=== PATIENT | female | born 1965 | race Caucasian/White ===

== ENCOUNTER 2017-02-06 05:49 | Inpatient (IN) | payer BC, OTHER ==
--- NOTE | 2017-02-06 06:58 | ED ---
Misbah Conn Nilda, scribed for Indra Pierce MD on 02/06/17 at 0642 . Upper Extremity Pain - HPI Summary HPI Summary: This patient is a 51 year old F presenting to [facility] accompanied by with a chief complaint of exacerbated constant left hand pain (burning) s/p lifting heavy objects at work at 0200 today. The patient rates the pain 7/10 in severity. Symptoms aggravated by movement and palpation. Symptoms alleviated by nothing. Patient reports left hand swelling. - History of Current Complaint Chief Complaint: EDExtremityUpper Stated Complaint: LEFT HAND INJURY FROM WORK Time Seen by Provider: 02/06/17 06:34 Hx Obtained From: Patient Mechanism Of Injury: Other - lifting heavy objects at work today. Onset/Duration: Started Hours Ago, Still Present Timing: Constant Severity Currently: Moderate - 7/10 Character: Burning Aggravating Factor(s): Movement, Other - palpation Alleviating Factor(s): Nothing Associated Signs & Symptoms: Positive: Swelling - left hand - Allergies/Home Medications Allergies/Adverse Reactions: Allergies Allergy/AdvReac Type Severity Reaction Status Date / Time No Known Allergies Allergy Verified 02/06/17 05:55 PMH/Surg Hx/FS Hx/Imm Hx Cardiovascular History: Reports: Hx Hypertension Sensory History: Denies: Hx Legally Blind Psychiatric History: Reports: Hx Depression - Surgical History Surgery Procedure, Year, and Place: ovary removed Infectious Disease History: No Infectious Disease History: Reports: Hx Shingles Denies: History Other Infectious Disease, Traveled Outside the [place] in Last 30 Days - Family History Known Family History: Positive: Hypertension Negative: Diabetes - Social History Alcohol Use: Rare Substance Use Type: Reports: None Smoking Status (MU): Heavy Every Day Tobacco Smoker Type: Cigarettes Amount Used/How Often: 1/2 ppd Review of Systems Negative: Shortness Of Breath Positive: Other - left hand pain and swelling All Other Systems Reviewed And Are Negative: Yes Physical Exam Triage Information Reviewed: Yes Vital Signs On Initial Exam: Initial Vitals Temp Pulse Resp BP Pulse Ox 97.3 F 95 16 154/114 98 02/06/17 05:51 02/06/17 05:51 02/06/17 05:51 02/06/17 05:51 02/06/17 05:51 Vital Signs Reviewed: Yes Appearance: Positive: Well-Appearing, No Pain Distress Skin: Positive: Warm, Skin Color Reflects Adequate Perfusion, Dry Head/Face: Positive: Normal Head/Face Inspection Eyes: Positive: EOMI, NAS ENT: Positive: Normal ENT inspection Neck: Positive: Supple, Nontender Respiratory/Lung Sounds: Positive: Clear to Auscultation, Breath Sounds Present Cardiovascular: Positive: RRR Abdomen Description: Positive: Nontender, Soft Bowel Sounds: Positive: Present Musculoskeletal: Positive: Strength/ROM Intact, Other - FROM in left fingers and left wrist; discomfort in radial aspect of wrist with ROM; swelling in dorsal aspect over proximal first and second metacarpals Neurological: Positive: Normal, Sensory/Motor Intact, Alert, Oriented to Person Place, Time Psychiatric: Positive: Affect/Mood Appropriate - Mamie Coma Scale Coma Scale Total: 15 Diagnostics - Vital Signs Vital Signs Temp Pulse Resp BP Pulse Ox 02/06/17 06:25 98 F 88 18 158/100 97 02/06/17 05:51 97.3 F 95 16 154/114 98 - Laboratory Lab Statement: Any lab studies that have been ordered have been reviewed, and results considered in the medical decision making process. - Radiology Wrist XRAY Radiology Interpretation Completed By: ED Physician - No fracture noted. Re-Evaluation - Re-Evaluation First Eval Re-Evaluation Time: 06:45 Comment: Patient reporting SI (onset: yesterday, resolved). PMHx depression. Patient denies current SI. ED physician offered [facility]HE but patient notes that she feels safe going home. Course/Dx - Course Course Of Treatment: BP noted and advised to follow up with PCP. Medications reviewed. PATIENT DENIED SI/FEELS SAFE GOING HOME/ AGREES. I DID NOT SEE A FXR ON X-RAY. RADIOLOGIST READING IS PENDING. THUMB SPICA SPLINT PLACE BECAUSE PAIN IS DISTAL RADIUS/PROXIMAL 1ST/2ND METACARPALS. F/U PMD. IF RADIOLOGY SEES FXR; F/U ORTHO. - Diagnoses Provider Diagnoses: Left wrist sprain Discharge - Discharge Plan Condition: Stable Disposition: HOME Patient Education Materials: Splint Care (ED), Wrist Sprain (ED), Ibuprofen ( By mouth) Forms: *Work Release Referrals: Yousuf PABLO,David Burgess [Primary Care Provider] - Additional Instructions: FOLLOW UP WITH YOUR DOCTOR. THE RADIOLOGIST WILL READ THE X-RAY THIS MORNING; IF THERE IS A FRACTURE, YOU WILL NEED TO FOLLOW UP WITH ORTHOPEDICS. RETURN TO THE EMERGENCY DEPARTMENT FOR ANY WORSENING OF YOUR CONDITION OR QUESTIONS OR CONCERNS. The documentation as recorded by the Misbah nevarez Nilda accurately reflects the service I personally performed and the decisions made by me, Indra Pierce MD.
[2017-02-06 07:49] LABS: Hematocrit 47 % (35-47); Hemoglobin 15.9 g/dl (12.0-16.0); Mean Corpuscular HGB Conc 34 g/dl (31-36); Mean Corpuscular Hemoglobin 29 pg (27-31); Mean Corpuscular Volume 85 fL (80-97); Mean Platelet Volume 9 um3 (7.4-10.4); Red Blood Count 5.56 10^6/ul (4.0-5.4); Red Cell Distribution Width 13 % (10.5-15); White Blood Count 9.9 10^3/ul (3.5-10.8)
[2017-02-06 07:50] LABS: Add Diff/Slide Review? Manual Diff Added; Comments Flag Yes
[2017-02-06 07:55] LABS: Urine Bacteria Absent (Absent); Urine Bilirubin Negative (Negative); Urine Glucose Negative (Negative); Urine Nitrite Negative (Negative)
[2017-02-06 08:00] LABS: Benzodiazepine Urine Screen None Detected (None Detect)
[2017-02-06 08:05] LABS: ALT 9 U/L (7-52); AST 14 U/L (13-39); Albumin 4.6 g/dL (3.2-5.2); Alkaline Phosphatase 73 U/L (34-104); Anion Gap 7 mmol/L (2-11); BUN/Creatinine Ratio 19.6 (8-20); Blood Urea Nitrogen 11 mg/dL (6-24); CO2 Carbon Dioxide 25 mmol/L (22-32); Calcium 9.8 mg/dL (8.6-10.3); Chloride 101 mmol/L (101-111); EGFR African American 146.2 (>60); EGFR Non-African American 113.7 (>60); Globulin 3.2 g/dL (2-4); Glucose 91 mg/dL (70-100); Sodium 133 mmol/L (133-145); Total Protein 7.8 g/dL (6.4-8.9)
--- NOTE | 2017-02-06 08:21 | RAD ---
INDICATION: 2 weeks of left wrist pain COMPARISON: Hand radiograph dated March 26, 2008 TECHNIQUE: 3 views left wrist. REPORT: The visualized bones are properly aligned and well corticated. The joint spaces are normal.There is no fracture, dislocation or other focal osseous abnormality. IMPRESSION: Normal radiograph of the left wrist. If the patient's symptoms persist, follow-up imaging is recommended.
[2017-02-06 08:36] LABS: Acetaminophen < 15 mcg/mL; Add Path Review? YES; Alcohol < 10 mg/dL (<10); Eosinophils % 3 % (0-6); Neutrophil % 63 % (38-83); RBC Morphology Normal (Normal); Reactive Lymph % 14 % (0-6); Salicylate < 2.50 mg/dL (<30)
[2017-02-06 08:49] LABS: TSH (Thyroid Stimulating Horm) 0.66 mcIU/mL (0.34-5.60)
[2017-02-06] MEDS ORDERED: Acetaminophen TAB* 325 MG PO ONE (11:38)
[2017-02-06] MEDS ORDERED: Nicotine PATCH 14 MG/24 HR* PATCH TRANSDERM ONE (14:20)
[2017-02-07] MEDS ORDERED: Acetaminophen TAB* 325 MG PO PRN (05:00)
[2017-02-07] MEDS ORDERED: Acetaminophen TAB* 325 MG ONE (05:08)
--- NOTE | 2017-02-07 11:32 | HP ---
H&P (Free Text) History and Physical: HPI: ---- Patient is a 51yo female with PPHx significant for Depressive d/o who presents, BIB her , reporting worsening anxiety and depression associated with recent SI w/plan to OD on her and her husbands Rx pills on the [facility]. Patient has been employed at [employer] for >20years. 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 Patient reports she has dealt with derogatory comments from students, staff, and her supervisors for much of her 20yrs at [employer]. She stated recently she has, "reached a breaking point...it's all the stress, at work, financial, just everything". Patient stated recently, "everything is so much worse", and she feels ,"invisible at work". Patient points also to stressor of her 's recent MVA and that he has not been able to work for some time now. [facility] Patient has had visits from her daughter and since admission. Patient reports her 5 grandchildren are her protective factors from harming herself. Patient reports this is her 1st psychiatric admission. Patient denies new medical issues. Patient reports neither alcohol or illicit substances played a role in her decompensation. Patient denies hx of physical, emotional, or sexual abuse in childhood. She reports no signs of psychosis nor were any elicited on interview. Past Psych Hx: Inpt - Patient reports this is her 1st psychiatric admission. Outpt - patient reports no hx of encounters at outpt clinics. She reports she has had antidepressants this year w/o benefit, Rx'd by her PCP(Dr. To). Psychotropic med hx - Zoloft Suicide attempt Hx / SIB Hx: Patient denies hx of suicide attempt and denies hx of SIB. Trauma Hx: Patient denies hx of physical, emotional, or sexual abuse in childhood. Substance Hx: Patient denies hx of abuse of alcohol. Patient denies hx of use of illicit substances. Medical Hx: HTN Psoriasis Allergies: --------- NKDA Family Hx: Patient reports no hx of MH issues in family members. Patient reports her dad was an alcoholic. Patient reports no hx in family members of completed or attempted suicide. Social Hx: --------- -Lives in [place] with her 2nd , they 07/2016. -Patient's 1st marriage of 21yrs ended in divorce in 2003. -Patient has 3 children and 5 grandchildren. -Patient has worked for [employer] in [place] for 20yrs. -Patient denies pending legal issues. -Patient reports no hx of assault or DV. -Patient reports firearms in her home, but reports they are locked in safes. She reports she does not have the keys. Will d/w . -Patient reports no stockpiles of old Rx pills. Home Medications: Home Medications Medication Instructions Recorded Confirmed Type Acetaminophen TAB* [Tylenol TAB*] 650 mg PO Q4H PRN 06/03/15 06/03/15 History Lisinopril [Lisinopril 20 MG-] 20 mg PO DAILY 06/03/15 02/07/17 History Methotrexate TAB* 8 mg PO WEEKLY 06/03/15 02/07/17 History Tizanidine HCl [Zanaflex] 2 mg PO TID PRN #30 cap 06/03/15 02/07/17 Rx Sertraline HCl [Zoloft] 50 mg PO DAILY 02/06/17 02/06/17 History Hydrochlorothiazide TAB* 12.5 mg PO DAILY 02/07/17 02/07/17 History [Hydrodiuril TAB*] VITALS: --------- Vital Signs (72 hours) 02/06/17 02/06/17 02/06/17 05:51 06:25 10:53 Temperature 97.3 F 98 F 97.4 F Pulse Rate 95 88 84 Respiratory 16 18 17 Rate Blood Pressure 154/114 158/100 146/100 (mmHg) O2 Sat by Pulse 98 97 98 Oximetry 02/06/17 02/06/17 02/06/17 12:29 20:01 22:49 Temperature 98.6 F 99 F Pulse Rate 74 75 Respiratory 16 18 18 Rate Blood Pressure 143/97 144/93 (mmHg) O2 Sat by Pulse 98 98 Oximetry 02/07/17 02/07/17 02/08/17 07:35 12:09 07:15 Temperature 98.7 F 99.4 F Pulse Rate 75 66 Respiratory 16 16 16 Rate Blood Pressure 150/96 157/102 (mmHg) O2 Sat by Pulse 97 96 Oximetry LABS: -------- Laboratory Tests 02/06/17 02/06/17 02/06/17 07:35 07:35 07:35 WBC 9.9 RBC 5.56 H Hgb 15.9 Hct 47 MCV 85 MCH 29 MCHC 34 RDW 13 Plt Count 267 MPV 9 Absolute Neuts (auto) 6.2 Absolute Lymphs (auto) 3.1 Absolute Monos (auto) 0.3 Absolute Eos (auto) 0.3 Absolute Basos (auto) 0 Absolute Nucleated RBC 0 Neutrophils % 63 Lymphocytes % 17 L Reactive Lymphs % 14 H Monocytes % 3 Eosinophils % 3 Normal RBC Morphology Normal Hem Pathologist Commnt Sodium 133 Potassium 4.0 Chloride 101 Carbon Dioxide 25 Anion Gap 7 BUN 11 Creatinine 0.56 Est GFR ( Amer) 146.2 Est GFR (Non-Af Amer) 113.7 BUN/Creatinine Ratio 19.6 Glucose 91 Calcium 9.8 Total Bilirubin 0.60 AST 14 ALT 9 Alkaline Phosphatase 73 Total Protein 7.8 Albumin 4.6 Globulin 3.2 Albumin/Globulin Ratio 1.4 TSH 0.66 Urine Color Urine Appearance Urine pH Ur Specific [place] Urine Protein Urine Ketones Urine Blood Urine Nitrate Urine Bilirubin Urine Urobilinogen Ur Leukocyte Esterase Urine WBC (Auto) Urine RBC (Auto) Ur Squamous Epith Cells Urine Bacteria Urine Glucose Salicylates < 2.50 Urine Opiates Screen None detected Acetaminophen < 15 Ur Barbiturates Screen None detected Ur Phencyclidine Scrn None detected Ur Amphetamines Screen None detected U Benzodiazepines Scrn None detected Urine Cocaine Screen None detected U Cannabinoids Screen None detected Serum Alcohol < 10 02/06/17 07:35 WBC RBC Hgb Hct MCV MCH MCHC RDW Plt Count MPV Absolute Neuts (auto) Absolute Lymphs (auto) Absolute Monos (auto) Absolute Eos (auto) Absolute Basos (auto) Absolute Nucleated RBC Neutrophils % Lymphocytes % Reactive Lymphs % Monocytes % Eosinophils % Normal RBC Morphology Hem Pathologist Commnt Sodium Potassium Chloride Carbon Dioxide Anion Gap BUN Creatinine Est GFR ( Amer) Est GFR (Non-Af Amer) BUN/Creatinine Ratio Glucose Calcium Total Bilirubin AST ALT Alkaline Phosphatase Total Protein Albumin Globulin Albumin/Globulin Ratio TSH Urine Color Yellow Urine Appearance Clear Urine pH 5.0 Ur Specific [place] 1.008 L Urine Protein Negative Urine Ketones Negative Urine Blood 1+ H Urine Nitrate Negative Urine Bilirubin Negative Urine Urobilinogen Negative Ur Leukocyte Esterase Negative Urine WBC (Auto) Absent Urine RBC (Auto) Trace(0-2/hpf) Ur Squamous Epith Cells Present H Urine Bacteria Absent Urine Glucose Negative Salicylates Urine Opiates Screen Acetaminophen Ur Barbiturates Screen Ur Phencyclidine Scrn Ur Amphetamines Screen U Benzodiazepines Scrn Urine Cocaine Screen U Cannabinoids Screen Serum Alcohol PHYSICAL EXAM: Patient declines PE. Please see H&P documented in the [facility]: Psychiatric Complaint note dated 02/06. MSE: ----- Appearance - thin build female, fair hygeine, in NAD Behavior - calm , cooperative Speech - RVR, prosody wnl Eye Contact - good Mood - "okay" Affect - broad TP - linear and GD TC - feeling she needs time away from her job Perception - no signs of psychosis noted or reported Orientation - A&Ox3 Cognition - intact Insight - fair Judgement - fair SI / HI - SI and plan present on admission, currently she denies both ASSESSMENT: 1. Depressive d/o, unspecified PLAN: ------ 1. Continue admission to [facility] for safety and symptom mx. 2. Will increase home antidepressant Zoloft from 50mg to 150mg po qam for mood and anxiety. 3. Continue compiling collateral information from family(-Travis#) and PCP. 4. Patient to participate in milieu activities and groups.
[2017-02-07] MEDS: Hydrochlorothiazide TAB* 25 MG PO SCH (14:12)
[2017-02-07] MEDS: Sertraline* 50 MG TAB PO SCH (14:13)
[2017-02-07] MEDS: Lisinopril TAB* 10 MG PO SCH (14:17)
[2017-02-07] MEDS: Nicotine Patch Removal NOTE FOLLOW UP SCH (17:09)
[2017-02-08 08:02] VITALS: BP 157/102
[2017-02-08] MEDS: Sertraline* 50 MG TAB PO SCH (09:17)
[2017-02-08] MEDS: Hydrochlorothiazide TAB* 25 MG PO SCH (09:18)
[2017-02-08] MEDS: Nicotine Patch Removal NOTE FOLLOW UP SCH (09:18)
[2017-02-08] MEDS: Lisinopril TAB* 10 MG PO SCH (09:18)
--- NOTE | 2017-02-08 11:56 | DS ---
Subjective - Subjective Service Types: 81040 Hosp DC Day Mgmt simple under 30 min Subjective: On admission day #1, day of discharge, patient is noted to still be full in affect, pleasant, socializing with her daughter who has come in again to visit. She has been engaged in therapy since admission. She has attended all groups. Patient has not been observed displaying emotional lability , but has been calm and cooperative. Patient again denies SI/HI and AH/VH. Patient reports good sleep and appetite. Patient reports feeling ready for discharge. Per discussion with patient's daughter and who are on the unit visiting, they also feel that patient is ready for discharge and feel comfortable with her discharge today. Patient is psychiatrically stable. She is linear and GD in TP and future oriented in TC. Patient reports desire to take approx 1 week off from work to rest and re-evaluate her future at [facility] in regard to possibly transferring to another [facility]. Discharge plan discussed w/patient, patient acknowledges understanding and is amenable. Patient instructed to call 911, crisis hotline, or self present to the ED if SI recurs. Patient was amenable and acknowledged understanding of family and community supports. Patient discharged home with and daughter. Objective - Appearance Appearance: Thin Framed Dysmorphic Features: No Hygiene: Normal Grooming: Fairly Well Kept - Behavior Psychomotor Activities: Normal Exhibits Abnormal Movement: No - Attitude and Relatedness Attitude and Relatedness: Cooperative Eye Contact: Fair - Speech Quality: Unpressured Latencies: Normal Quantity: Appropriate - Mood Patient's Decription of Mood: "Fine" - Affect Observed Affect: Fair Affect Consistent with: Euthymia - Thought Process Patient's Thought Process: Coherent Thought Content: No Passive Wish, No Suicidal Planning, No Homicidal Ideation, No Paranoid Ideation - Sensorium Experiencing Hallucinations: No, Sensorium is Clear Type of Hallucinations: Visual: No, Auditory: No, Command: No - Level of Consciousness Level of Consciousness: Alert Orientation: Yes Intact, Yes Orientated to Time, Yes Orientated to Place, Yes Orientated to Person - Impulse Control Impulse Control: Intact - Insight and Judgement Insight and Judgement: Fair - Group Participation Particating in Group Activities: Yes - Medication Management Medication Management Adherence: Yes Treatment Course & Assessment Clinical Course & Impression: HOSPITAL COURSE: Patient is a 51yo female with PPHx significant for Depressive d/o who presents, BIB her , reporting worsening anxiety and depression associated with recent SI w/plan to OD on her and her husbands Rx pills on the [employer] [facility]. Patient has been employed at [employer] for >20years. 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 Patient reports she has dealt with derogatory comments from students, staff, and her supervisors for much of her 20yrs at [employer]. She stated recently she has, "reached a breaking point...it's all the stress, at work, financial, just everything". Patient stated recently, "everything is so much worse", and she feels ,"invisible at work". Patient points also to stressor of her 's recent MVA and that he has not been able to work for some time now. Patient reports interest in being connected with outpt MH services. Patient has had visits from her daughter and since admission. Patient reports her 5 grandchildren are her protective factors from harming herself. Patient reports this is her 1st psychiatric admission. Patient denies new medical issues. Patient reports neither alcohol or illicit substances played a role in her decompensation. Patient denies hx of physical, emotional, or sexual abuse in childhood. She reports no signs of psychosis nor were any elicited on interview. On admission, patient amenable to dose increase of home antidepressant Zoloft from 50mg to 150mg po qam. On the unit, patient noted to be social, visiting with her daughter and . Patient has also engaged in therapy. She attended all groups after her presentation to the unit. On admission day #1, day of discharge, patient is noted to still be full in affect, pleasant, socializing with her daughter who has come in again to visit. She has been engaged in therapy since admission. She has attended all groups. Patient has not been observed displaying emotional lability, but has been calm and cooperative. Patient again denies SI/HI and AH/VH. Patient reports good sleep and appetite. Patient reports feeling ready for discharge. Per discussion with patient's daughter and who are on the unit visiting again today, they also feel that patient is ready for discharge and feel comfortable with her discharge today. Patient is psychiatrically stable. She is linear and GD in TP and future oriented in TC. Patient reports desire to take approx 1 week off from work to rest and re-evaluate her future at [facility] in regard to possibly transferring to another [facility]. Discharge plan discussed w/patient, patient acknowledges understanding and is amenable. Patient instructed to call 911, crisis hotline, or self present to the ED if SI recurs. Patient was amenable and acknowledged understanding of family and community supports. Patient discharged home with and daughter. PERTINENT LABS: Laboratory Tests 02/06/17 02/06/17 02/06/17 07:35 07:35 07:35 WBC 9.9 RBC 5.56 H Hgb 15.9 Hct 47 MCV 85 MCH 29 MCHC 34 RDW 13 Plt Count 267 MPV 9 Absolute Neuts (auto) 6.2 Absolute Lymphs (auto) 3.1 Absolute Monos (auto) 0.3 Absolute Eos (auto) 0.3 Absolute Basos (auto) 0 Absolute Nucleated RBC 0 Neutrophils % 63 Lymphocytes % 17 L Reactive Lymphs % 14 H Monocytes % 3 Eosinophils % 3 Normal RBC Morphology Normal Hem Pathologist Commnt Sodium 133 Potassium 4.0 Chloride 101 Carbon Dioxide 25 Anion Gap 7 BUN 11 Creatinine 0.56 Est GFR ( Amer) 146.2 Est GFR (Non-Af Amer) 113.7 BUN/Creatinine Ratio 19.6 Glucose 91 Calcium 9.8 Total Bilirubin 0.60 AST 14 ALT 9 Alkaline Phosphatase 73 Total Protein 7.8 Albumin 4.6 Globulin 3.2 Albumin/Globulin Ratio 1.4 TSH 0.66 Urine Color Urine Appearance Urine pH Ur Specific [place] Urine Protein Urine Ketones Urine Blood Urine Nitrate Urine Bilirubin Urine Urobilinogen Ur Leukocyte Esterase Urine WBC (Auto) Urine RBC (Auto) Ur Squamous Epith Cells Urine Bacteria Urine Glucose Salicylates < 2.50 Urine Opiates Screen None detected Acetaminophen < 15 Ur Barbiturates Screen None detected Ur Phencyclidine Scrn None detected Ur Amphetamines Screen None detected U Benzodiazepines Scrn None detected Urine Cocaine Screen None detected U Cannabinoids Screen None detected Serum Alcohol < 10 02/06/17 07:35 WBC RBC Hgb Hct MCV MCH MCHC RDW Plt Count MPV Absolute Neuts (auto) Absolute Lymphs (auto) Absolute Monos (auto) Absolute Eos (auto) Absolute Basos (auto) Absolute Nucleated RBC Neutrophils % Lymphocytes % Reactive Lymphs % Monocytes % Eosinophils % Normal RBC Morphology Hem Pathologist Commnt Sodium Potassium Chloride Carbon Dioxide Anion Gap BUN Creatinine Est GFR ( Amer) Est GFR (Non-Af Amer) BUN/Creatinine Ratio Glucose Calcium Total Bilirubin AST ALT Alkaline Phosphatase Total Protein Albumin Globulin Albumin/Globulin Ratio TSH Urine Color Yellow Urine Appearance Clear Urine pH 5.0 Ur Specific [place] 1.008 L Urine Protein Negative Urine Ketones Negative Urine Blood 1+ H Urine Nitrate Negative Urine Bilirubin Negative Urine Urobilinogen Negative Ur Leukocyte Esterase Negative Urine WBC (Auto) Absent Urine RBC (Auto) Trace(0-2/hpf) Ur Squamous Epith Cells Present H Urine Bacteria Absent Urine Glucose Negative Salicylates Urine Opiates Screen Acetaminophen Ur Barbiturates Screen Ur Phencyclidine Scrn Ur Amphetamines Screen U Benzodiazepines Scrn Urine Cocaine Screen U Cannabinoids Screen Serum Alcohol Consultants: none Discharge Meds: Medication Instructions Recorded Confirmed Type Acetaminophen TAB* [Tylenol TAB*] 650 mg PO Q4H PRN 06/03/15 06/03/15 History Lisinopril [Lisinopril 20 MG-] 20 mg PO DAILY 06/03/15 02/07/17 History Methotrexate TAB* 8 mg PO WEEKLY 06/03/15 02/07/17 History Tizanidine HCl [Zanaflex] 2 mg PO TID PRN #30 cap 06/03/15 02/07/17 Rx Hydrochlorothiazide TAB* 12.5 mg PO DAILY 02/07/17 02/07/17 History [Hydrodiuril TAB*] Sertraline* [Zoloft*] 150 mg PO DAILY #90 tab 02/08/17 Rx Follow-Up: Appt. for within the next 2 weeks scheduled by HAILEE with an outpt provider. Clear for Discharge: Adequate Clinical Respons, Acceptable Safety Profile Inpatient DSM-IV Dx: 1. Unspecified depressive d/o Discharge Planning - Discharge Planning Discharge Plan: Outpatient Follow Up Outpatient Program: Private Clinician(s) Recommendations for Continuing Care: Medication Management Medications: Current Medications Acetaminophen (Tylenol Tab*) 650 mg PO Q4H PRN PRN Reason: PAIN/FEVER Hydrochlorothiazide (Hydrodiuril Tab*) 12.5 mg PO DAILY [facility] Last Admin: 02/08/17 09:18 Dose: 12.5 mg Influenza Virus Vaccine (Fluarix *Quad* 2016-*) 0.5 ml IM .ONCE ONE Stop: 02/08/17 13:01 Lisinopril (Prinivil Tab*) 20 mg PO DAILY [facility] Last Admin: 02/08/17 09:18 Dose: 20 mg Pharmacy Profile Note (Nicotine Patch Removal Note*) 1 note FOLLOW UP 0600 [facility] Last Admin: 02/08/17 09:18 Dose: 1 note Sertraline HCl (Zoloft*) 150 mg PO DAILY [facility] Last Admin: 02/08/17 09:17 Dose: 150 mg Discharge Planning: Prescriptions provided for discharge [x] Yes [] No Follow up care details as per social work arrangements. Patient response to discharge plan: [] eager for discharge [x] agreeable with discharge plan [] ambivalent about discharge [] disagrees with discharge today
[2017-02-08] MEDS ORDERED: Influenza VAC *QUAD* 2017-18* 0.5 ML SYRINGE IM ONE (13:00)
== END 2017-02-08 13:10 | disposition home or self-care (01) | DRG 754 ==
LOC: ED 05:49 → BSU 18:20
PROVIDERS: ADMIT Psychiatry & Neurology Psychiatry; ATTEND Psychiatry & Neurology Psychiatry
DX: F32.9 Major depressive disorder, single episode, unspecified (principal); F17.210 Nicotine dependence, cigarettes, uncomplicated; F41.9 Anxiety disorder, unspecified; I10 Essential (primary) hypertension; L40.9 Psoriasis, unspecified; Z82.49 Family history of ischemic heart disease and other diseases of the circulatory system
CPT/HCPCS: 36415; 80053; 80307; 80320; 80329; 81003; 81015; 84443; 85025; 85060; 99222; 99238; A9270-GY; G0480

== ENCOUNTER 2018-10-16 08:49 | Emergency (ER) | payer OTHER ==
[2018-10-16] MEDS ORDERED: oxyCODONE/Acetamin 5/325 MG* TAB PO ONE (09:00)
--- NOTE | 2018-10-16 09:01 | ED ---
Upper Extremity Pain - HPI Summary HPI Summary: 53-year-old female presents with right wrist injury at work today. She states that lid dropped onto her right wrist. She admits to swelling and range of motion. She has never broke this before. No numbness or tingling. She states pain radiates to right forearm. Denies any pain in the hand. She is right- handed. Has history of high blood pressure. - History of Current Complaint Chief Complaint: EDExtremityUpper Stated Complaint: RIGHT ARM PAIN PER EMS Time Seen by Provider: 10/16/18 08:55 - Allergies/Home Medications Allergies/Adverse Reactions: Allergies Allergy/AdvReac Type Severity Reaction Status Date / Time No Known Allergies Allergy Verified 10/16/18 08:57 Home Medications: Home Medications buPROPion SR TAB* 150 mg PO DAILY 10/16/18 [History Confirmed 10/16/18] PMH/Surg Hx/FS Hx/Imm Hx Endocrine/Hematology History: Denies: Hx Anticoagulant Therapy Cardiovascular History: Reports: Hx Hypertension Sensory History: Denies: Hx Contacts or Glasses, Hx Legally Blind, Hx Hearing Aid Opthamlomology History: Denies: Hx Contacts or Glasses, Hx Legally Blind Psychiatric History: Reports: Hx Depression Denies: Hx Eating Disorder, Hx of Violent Episodes Against Others - Surgical History Surgery Procedure, Year, and Place: ovary removed Infectious Disease History: No Infectious Disease History: Reports: Hx Shingles Denies: History Other Infectious Disease, Traveled Outside the [place] in Last 30 Days - Family History Known Family History: Positive: Hypertension Negative: Diabetes - Social History Alcohol Use: None Substance Use Type: Reports: None Smoking Status (MU): Heavy Every Day Tobacco Smoker Type: Cigarettes Amount Used/How Often: 1/2 ppd for last 30days, no ther tobacco products used Review of Systems Negative: Fever Negative: Chest Pain Negative: Shortness Of Breath Positive: Myalgia - right wrist pain All Other Systems Reviewed And Are Negative: Yes Physical Exam Triage Information Reviewed: Yes Vital Signs On Initial Exam: Initial Vitals Temp Pulse Resp BP Pulse Ox 97.8 F 74 16 152/100 95 10/16/18 08:51 10/16/18 08:51 10/16/18 08:51 10/16/18 08:51 10/16/18 08:51 Vital Signs Reviewed: Yes Appearance: Positive: Well-Appearing Skin: Positive: Warm, Dry Head/Face: Positive: Normal Head/Face Inspection Eyes: Positive: Normal, Conjunctiva Clear ENT: Positive: Pharynx normal Respiratory/Lung Sounds: Positive: Clear to Auscultation, Breath Sounds Present Cardiovascular: Positive: Normal, RRR Musculoskeletal: Positive: Limited @ - right wrist, Edema Right - wrist, Other - neg snuff box tenderness, capillary refill<2secs, tenderness right wrist and forearm, nontender right hand Neurological: Positive: Normal Psychiatric: Positive: Normal Procedures - Splinting right forearm Location: right wrist Hand-Made Type: orthoglass Splint: sugar-tong Pre-Proc Neuro Vasc Exam: normal Post-Proc Neuro Vasc Exam: normal - Joint Reduction wrist Joint Reduction Site: wrist (R) Conscious Sedation: No Reduction Attempts: 1 - finger traps and manual Post Joint Reduction Film: fracture present Diagnostics - Vital Signs Vital Signs Temp Pulse Resp BP Pulse Ox 10/16/18 08:51 97.8 F 74 16 152/100 95 - Laboratory Lab Statement: Any lab studies that have been ordered have been reviewed, and results considered in the medical decision making process. - Radiology forearm, wrist Radiology Interpretation Completed By: Radiologist Summary of Radiographic Findings: IMPRESSION: Transverse fracture distal radius with dorsal angulation. Course/Dx - Course Course Of Treatment: 53-year-old female presents with right wrist injury. She states that lid dropped onto her right wrist. She admits to swelling and range of motion. She has never broke this before. No numbness or tingling. She states pain radiates to right forearm. Denies any pain in the hand. She is right-handed. Has history of high blood pressure. On exam has edema noted to right wrist. Tenderness over right wrist. Negative snuffbox tenderness. Neurovascular intact. removed rings. X-ray shows radius fracture. performed hematoma block. placed in finger splints and manual reduced. placed in sugar tong splint. xray shows still displaced. will have follow up with ortho. told to ice and elevate. patient understand and agrees with plan. - Diagnoses Differential Diagnosis/HQI/PQRI: Positive: Contusion, Fracture (Closed), Sprain Provider Diagnoses: Right radial fracture Discharge - Sign-Out/Discharge Documenting (check all that apply): Patient Departure Patient Received Moderate/Deep Sedation with Procedure: No - Discharge Plan Condition: Good Disposition: HOME Prescriptions: oxyCODONE/Acetamin 5/325 MG* [Percocet 5/325 TAB*] 1 tab PO Q6H PRN #20 tab MDD 4 PRN Reason: Pain Patient Education Materials: Wrist Fracture in Adults (ED) Forms: *Work Release Referrals: Yousuf PABLO,David Burgess [Primary Care Provider] - Indra Guzman MD [Medical Doctor] - Additional Instructions: Keep elbow in sling as needed Keep splint on area and keep dry Call ortho office to set up appointment for follow up Use ibuprofen or tyenlol for pain every 6 hours and use percocet for breakthrough pain every 6 hours Ice, elevate Return to ED if develop any new or worsening symptoms - Billing Disposition and Condition Condition: GOOD Disposition: Home
[2018-10-16] MEDS ORDERED: Lidocaine 2% EPI 1:200000 MPF*10-20 ML VIAL INJ ONE (09:37)
[2018-10-16 11:25] VITALS: BP 147/88
== END 2018-10-16 11:25 | disposition home or self-care (01) ==
LOC: ED 08:49
DX: S52.91XA Unspecified fracture of right forearm, initial encounter for closed fracture (principal); M25.531 Pain in right wrist; F17.210 Nicotine dependence, cigarettes, uncomplicated; W22.8XXA Striking against or struck by other objects, initial encounter; Y92.9 Unspecified place or not applicable
CPT/HCPCS: 96374; 99283; A9270-GY

== ENCOUNTER 2018-10-29 10:21 | Day surgery (SDC) | payer SELFPAY ==
--- NOTE | 2018-10-23 14:24 | HP ---
PREOPERATIVE HISTORY AND PHYSICAL: DATE OF ADMISSION/SURGERY: Tentatively, 10/29/18 ATTENDING PHYSICIAN: Dr. Naya Oliveira* (dictated by PARISA Marr). CHIEF COMPLAINT: Right wrist pain. 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 She states the floor cover fell onto her right wrist and crushed her wrist. She was seen at the emergency department at [facility] where x-rays revealed a displaced distal radius fracture. Her fracture was reduced and she was splinted and she follows up in the office today 10/21/18 where x-rays reveal loss of reduction of her fracture. It was felt she would benefit from open reduction and internal fixation of her distal radius fracture and she elects to proceed. Her surgery is tentatively scheduled for 10/29/18 pending Workmen's Compensation authorization. PAST MEDICAL HISTORY: Significant for hypertension, iron-deficiency anemia, and depression. PAST SURGICAL HISTORY: She has had ruptured ovarian cyst with right oophorectomy in 1999. CURRENT MEDICATIONS: 1. Amlodipine 5 mg p.o. daily. 2. Lisinopril/hydrochlorothiazide 20 mg/12.5 mg daily. 3. Wellbutrin 150 mg p.o. daily. ALLERGIES: She denies allergies to medications. Denies environmental allergies. FAMILY HISTORY: Significant for mother having diabetes, heart disease, hypertension, and rheumatoid arthritis. Father with history of colon cancer and stroke. She has 4 brothers. They have history of colon cancer, leukemia, lung cancer, and prostate cancer. SOCIAL HISTORY: The patient currently lives with her brother. 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 She does use tobacco, smokes roughly 1 pack of cigarettes per day. Rarely drinks alcohol, maybe 1 wine per month. REVIEW OF SYSTEMS: A 14-point review of systems reviewed with the patient today and is positive for depression. She denies recent loss of consciousness, lightheadedness, dizziness, shortness of breath, chest pain, palpitations, gastrointestinal, or genitourinary problems. PHYSICAL EXAMINATION GENERAL: She is alert and oriented x3, in no acute distress, pleasant and cooperative. VITAL SIGNS: Her height 62 inches, weight 100 pounds. Pulse 80, BP 140/88, respirations 20. HEENT: PERRLA. EOMI. LUNGS: Decreased breath sounds throughout all lung anderson. No wheezes auscultated. HEART: Regular rate and rhythm. No murmur auscultated. ABDOMEN: Flat, soft, nontender, nondistended. Normoactive bowel sounds x4 quadrants. EXTREMITIES: Lower extremities within normal limits. Upper extremities: Right wrist reveals mild deformity and soft tissue swelling. She is able to fully range her fingers and can make a fist. Her circulation and sensation are intact distally. IMPRESSION: Displaced fracture of the right distal radius. PLAN: The patient has elected to proceed with open reduction and internal fixation, right distal radius fracture, with Dr. Naya Oliveira. She is tentatively scheduled for surgery 10/29/18. Risks and benefits of the procedure were fully discussed with the patient today and she elects to proceed. We will await Workers' Compensation permission for surgical intervention. She will follow up in roughly 10 days postoperatively. PARISA ROBLEDO [id number]/CPS #: [id number] MTDD
[~2018-10-29 10:21] MED LIST: Buffered Lidocaine 1% SYRIN* 1 ML/SYRINGE INTRADERM ONE; Bupivacaine 0.5% SDV PF* 30ML VIAL ONE; Lactated Ringers 1000 ML Bag* 1,000 ML IV SCH
[2018-10-29] MEDS ORDERED: ceFAZolin 2 GM in NS PREMIX(*) 2 GM/100 ML BAG IVPB ONE (10:35)
[2018-10-29] MEDS ORDERED: fentaNYL* 50 MCG/ML 2 ML VIAL (100 MCG VIAL) ONE (11:07)
[2018-10-29] MEDS ORDERED: Midazolam* 1 MG/ML 2 ML VIAL (2 MG) ONE (11:07)
[2018-10-29] MEDS ORDERED: Bupivacaine 0.5% SDV PF* 30ML VIAL ONE (11:09)
[2018-10-29] MEDS ORDERED: EPHEDrine (Pressors)* 50 MG/ML VIAL ONE (11:50)
[2018-10-29] MEDS ORDERED: Ondansetron INJ* 2 MG/ML VIAL ONE (11:53)
[2018-10-29] MEDS ORDERED: Ketorolac INJ* 30 MG/ML 1 ML VIAL ONE (11:53)
[2018-10-29] MEDS ORDERED: Metoclopramide IV* 5 MG/ML 2 ML VIAL ONE (11:53)
[2018-10-29] MEDS ORDERED: Dexamethasone IV* 4 MG/ML 1 ML (4 MG) ONE (11:53)
[2018-10-29 14:25] VITALS: BP 134/82
--- NOTE | 2018-10-29 15:01 | OP ---
DATE OF OPERATION: 10/29/18 [facility] DATE OF : 63 SURGEON: Naya Oliveira MD. WATCHGUARD: PARISA Mcqueen. ANESTHESIA: General. PRE-OP DIAGNOSIS: Right distal radius fracture, displaced. POST-OP DIAGNOSIS: Right distal radius fracture, displaced. OPERATIVE PROCEDURE: Open reduction internal fixation of the right distal radius. ESTIMATED BLOOD LOSS: Zero. TOURNIQUET TIME: Approximately 35 minutes. INDICATION FOR PROCEDURE: Jessica is a 53-year-old woman who was injured at work. 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 The lid of the floor machine came down onto her wrist and broke her radius. Closed reduction did not adequately align the fracture fragments. She presents for open reduction internal fixation of the right distal radius. DESCRIPTION OF PROCEDURE: The patient was brought to the operating room and was given a general anesthetic and placed in the supine position on the operating table with a tourniquet around her right upper arm. Skin of her right upper extremity was prepped and draped in the usual sterile fashion. The hand and forearm were exsanguinated and the tourniquet elevated to 250 mmHg. A longitudinal incision was made overlying the FCR tendon. We dissected through the subcutaneous tissue down to the tendon sheath. The superficial and deep portion of the FCR tendon sheath were incised. The tendon was retracted along with the FPL muscle and tendon. The pronator quadratus muscle was subperiosteally dissected off of the distal radius. The fracture fragments were reduced and then secured with a 3-hole variable angle plate from the [employer]. Distal radius set was secured with 3 proximal and 4 distal screws. The narrow plate was used. The position of the hardware and fracture fragment was checked on the C-arm in the AP and lateral views and found to be satisfactory. The wound was irrigated and the pronator quadratus was repaired over the plate. The FCR tendon with sheath was repaired with 3-0 Vicryl suture. Skin edges were reapproximated with 4-0 nylon suture. The wound was dressed with Xeroform, 4x4 , Webril, and a volar splint. The patient tolerated the procedure well and was brought to the recovery room in good condition. [id number]/CPS #: [id number] [facility]
== END 2018-10-29 14:10 | disposition home or self-care (01) ==
LOC: OREAST 10:21
PROVIDERS: ATTEND Orthopaedic Surgery
DX: S52.501A Unspecified fracture of the lower end of right radius, initial encounter for closed fracture (principal); W31.82XA Contact with other commercial machinery, initial encounter; Y93.E5 Activity, floor mopping and cleaning; Y92.214 College as the place of occurrence of the external cause; Y99.0 Civilian activity done for income or pay; F17.210 Nicotine dependence, cigarettes, uncomplicated; I10 Essential (primary) hypertension; D64.9 Anemia, unspecified
CPT/HCPCS: 76000; C1713; C1776; J0690; J1100; J1885; J2250; J2405; J2765; J3010; J3490

== ENCOUNTER 2019-04-18 16:19 | Emergency (ER) | payer BC, OTHER ==
--- NOTE | 2019-04-18 17:38 | ED ---
Back Pain - HPI Summary HPI Summary: Patient complains of new onset back pain after bending over to pick something up on April 16. Patient is ambulatory, denies change in urine or BM, numbness or tingling in lower extremities. Pain has not improved since the . Denies any other injury, pain or symptoms. Medical history is none. Denies IV drug use. - History of Current Complaint Chief Complaint: EDBackInjuryPain Stated Complaint: BACK INJURY PER PT Time Seen by Provider: 04/18/19 17:34 Hx Obtained From: Patient Onset/Duration: Sudden Onset, Lasting Days Onset/Duration: Started Days Ago Timing: Constant Back Pain Location: Is Discrete @ Severity Initially: Moderate Severity Currently: Severe Pain Intensity: 8 Pain Scale Used: 0-10 Numeric Character: Aching, Throbbing Aggravating Symptom(s): Movement, Lifting, Bending, Walking Alleviating Symptom(s): Rest, Position Associated Signs And Symptoms: Positive: Negative - Allergies/Home Medications Allergies/Adverse Reactions: Allergies Allergy/AdvReac Type Severity Reaction Status Date / Time No Known Allergies Allergy Verified 04/18/19 16:23 PMH/Surg Hx/FS Hx/Imm Hx Endocrine/Hematology History: Denies: Hx Anticoagulant Therapy Cardiovascular History: Reports: Hx Hypertension - ON MEDICATION FOR Denies: Hx Pacemaker/ICD, Other Cardiovascular Problems/Disorders Respiratory History: Denies: Other Respiratory Problems/Disorders GI History: Denies: Other GI Disorders History: Denies: Other Problems/Disorders Musculoskeletal History: Denies: Other Musculoskeletal History Sensory History: Denies: Hx Contacts or Glasses, Hx Legally Blind, Hx Hearing Aid Opthamlomology History: Denies: Hx Contacts or Glasses, Hx Legally Blind Neurological History: Denies: Other Neuro Impairments/Disorders Psychiatric History: Reports: Hx Depression - ON MEDICATION FOR Denies: Hx Eating Disorder, Hx of Violent Episodes Against Others - Surgical History Surgery Procedure, Year, and Place: OOPHORECTOMY-15 YEARS AGO-[facility]. COLONOSCOPY -WITH POLPY [id number] Hx Anesthesia Reactions: No Infectious Disease History: No Infectious Disease History: Reports: Hx Shingles Denies: History Other Infectious Disease, Traveled Outside the [place] in Last 30 Days - Family History Known Family History: Positive: Hypertension Negative: Diabetes - Social History Alcohol Use: None Substance Use Type: Reports: None Smoking Status (MU): Heavy Every Day Tobacco Smoker Type: Cigarettes Amount Used/How Often: 1/2 ppd X 35-40 YEARS Have You Smoked in the Last Year: No Review of Systems Constitutional: Negative Eyes: Negative ENT: Negative Cardiovascular: Negative Respiratory: Negative Gastrointestinal: Negative Genitourinary: Negative Musculoskeletal: Other Skin: Negative Neurological: Negative Psychological: Normal All Other Systems Reviewed And Are Negative: Yes Physical Exam - Summary Physical Exam Summary: Bony point tenderness over the lumbar spine. No paraspinal tenderness bilaterally. No ecchymosis, erythema, deformity, swelling, masses noted to back. PMS intact distally bilateral lower extremities. Triage Information Reviewed: Yes Vital Signs On Initial Exam: Initial Vitals Temp Pulse Resp BP Pulse Ox 98.2 F 97 15 192/132 99 04/18/19 16:21 04/18/19 16:21 04/18/19 16:21 04/18/19 16:21 04/18/19 16:21 Vital Signs Reviewed: Yes Appearance: Positive: Well-Appearing Skin: Positive: Warm Head/Face: Positive: Normal Head/Face Inspection Eyes: Positive: Normal Neck: Positive: Supple Respiratory/Lung Sounds: Positive: Clear to Auscultation Cardiovascular: Positive: Normal Abdomen Description: Positive: Nontender Musculoskeletal: Positive: Normal Neurological: Positive: Normal Psychiatric: Positive: Normal AVPU Assessment: Alert - Mamie Coma Scale Best Eye Response: 4 - Spontaneous Best Motor Response: 6 - Obeys Commands Best Verbal Response: 5 - Oriented Coma Scale Total: 15 Procedures - Sedation Patient Received Moderate/Deep Sedation with Procedure: No Diagnostics - Vital Signs Vital Signs Temp Pulse Resp BP Pulse Ox 04/18/19 16:21 98.2 F 97 15 192/132 99 - Laboratory Lab Statement: Any lab studies that have been ordered have been reviewed, and results considered in the medical decision making process. Back Pain Course/Dx - Course Course Of Treatment: Patient complains of new onset back pain after bending over to pick something up on April 16. Patient is ambulatory, denies change in urine or BM, numbness or tingling in lower extremities. Pain has not improved since the . Denies any other injury, pain or symptoms. Medical history is none. Denies IV drug use. Vital signs within normal limits. X-ray lumbar spine negative. - Diagnoses Provider Diagnoses: Back injury Discharge ED - Sign-Out/Discharge Documenting (check all that apply): Patient Departure - Discharge Plan Condition: Stable Disposition: HOME Prescriptions: Cyclobenzaprine TAB* [Flexeril 10 MG TAB*] 10 mg PO TID PRN 5 Days #15 tab PRN Reason: Spasms Lidocaine PATCH 5%* [Lidoderm 5% Patch*] 1 patch TRANSDERM DAILY 4 Days #4 patch Patient Education Materials: Low Back Strain (ED), Muscle Spasm (ED) Referrals: Yousuf PABLO,David Burgess [Primary Care Provider] - Jess Moser MD [Medical Doctor] - Additional Instructions: Use Lidocaine patches as directed, 12 hours on, then 12 hours off, for back pain. Take Flexeril as directed for back pain. Be aware that this medication can make you drowsy. If symptoms persist more than 1 week follow-up with neurosurgery Dr. Moser for further evaluation. - Billing Disposition and Condition Condition: STABLE Disposition: Home
[2019-04-18] MEDS ORDERED: Ketorolac INJ* 30 MG/ML 1 ML VIAL IM ONE (17:50)
[2019-04-18] MEDS ORDERED: Lidocaine PATCH 5%* 1 PATCH TRANSDERM SCH (17:51)
[2019-04-18] MEDS ORDERED: Diazepam TAB(*) 5 MG PO ONE (17:51)
[2019-04-18 19:01] VITALS: BP 108/60
[2019-04-18] MEDS ORDERED: Lidocaine Patch REMOVE* 1 NOTE MISC SCH (21:00)
== END 2019-04-18 19:00 | disposition home or self-care (01) ==
LOC: ED 16:19
DX: S39.92XA Unspecified injury of lower back, initial encounter (principal); X50.9XXA Other and unspecified overexertion or strenuous movements or postures, initial encounter; Y92.9 Unspecified place or not applicable; I10 Essential (primary) hypertension; F17.210 Nicotine dependence, cigarettes, uncomplicated; Z79.899 Other long term (current) drug therapy; Z90.721 Acquired absence of ovaries, unilateral
CPT/HCPCS: 72110; 96372; 99282; A9270-GY; J1885